=== PATIENT | female | born 1985 | race Caucasian/White ===

== ENCOUNTER 2016-06-08 17:24 | Emergency (ER) | payer MEDICAID ==
[~2016-06-08] VITALS: Ht 149.9 cm; Wt 81.8 kg
[~2016-06-08 17:24] MED LIST: BIRTH CONTROL; BIRTHCONTROL; CELEXA 20MG20 MG/TAB PO; CELEXA10 MG PO; DEPO-PROVER400 MG/ML IM; DESOGEN 0.15 MG1 TAB PO; EC NAPROSYN375 MG PO; ERY-TAB250 MG PO; FLEXERIL 1010 MG/TAB PO; FLEXERIL10 MG PO; FLINTSTONES W/I1 CTB PO; HERBAL LIFE; IBU800 M1 PO; LEVAQUIN 5500 MG/TA1 PO; LORTAB 5/500 501 TAB PO; NAPROSYN PO; NAPROSYN500 MG PO; NASONEX SPRAY NAS; NO HOME MEDICATIONS; NORCO 325 MG-51 TAB PO; NORCO 325 MG-7.1 TAB PO; OMNICEF 300MG300 MG PO; PERCOCET 325 MG1 TA2 PO; PRENATAL1 TA1 PO; SEPTRA DS 8001 TAB PO; TESSALON PERLE200 MG PO; TYLENOL W/COD1 UDTAB PO; ZITHROMAX Z PA250 MG PO; ZITHROMAX500 M2 PO; ZOFRAN 4MG T4 MG/TAB PO
[2016-06-08 17:29] VITALS: TEMP 98
[2016-06-08 18:21] LABS: PH 5 (5-8); URINE APPEARANCE Hazy; URINE BACTERIA None Seen /hpf; URINE BILIRUBIN Negative (NEGATIVE); URINE BLOOD Negative (NEGATIVE); URINE COLOR Yellow; URINE GLUCOSE Negative (NEGATIVE); URINE KETONE Negative (NEGATIVE); URINE RBC 0-2 /hpf; URINE UROBILINOGEN Negative (NEGATIVE); URINE WBC 0-2 /hpf
[2016-06-08 19:18] LABS: BASO # 0.1 (0.0-0.2); BASO % 0.6 % (0.0-2.0); EOS # 0.2 (0.0-0.7); EOS % 1.9 % (0-4.0); GRAN # 6.6 (1.4-6.5); GRAN % 66.2 % (42.2-75.2); HEMATOCRIT 38.8 % (37.0-47.0); LYMPH # 2.5 (1.2-3.4); LYMPH % 25.4 % (20.0-51.0); MEAN CELL VOLUME 88 fl (80.0-100.0); MEAN CORPUSCULAR HEMOGLOBIN 29 pg (27.0-31.0); MEAN CORPUSCULAR HGB CONC 34 g/dl (33.0-37.0); MEAN PLATELET VOLUME 10.1 fl (7.4-10.4); MONO # 0.5 (0.1-0.6); MONO % 5.2 % (1.7-9.3); PLATELET COUNT 260 K/mm3 (130-400); RED BLOOD COUNT 4.42 M/mm3 (4.10-5.30); REDCELL DISTRIBUTION WIDTH-CV 12.4 % (11.5-14.5)
[2016-06-08 20:54] VITALS: BP 99/47; PULSE 92
[2016-06-08 22:36] LABS: CHLAMYDIA/TRACH by PCR Female Not Detected; NEISSERIA GON by PCR Female Not Detected
== END 2016-06-08 20:56 | disposition home or self-care (01) ==
LOC: COL.ER 17:24
PROVIDERS: Nurse Practitioner
DX: O26.891 Other specified pregnancy related conditions, first trimester (principal); R10.2 Pelvic and perineal pain; N94.89 Other specified conditions associated with female genital organs and menstrual cycle; Z3A.01 Less than 8 weeks gestation of pregnancy

== ENCOUNTER 2016-07-24 08:30 | Emergency (ER) | payer BC, MEDICAID ==
[~2016-07-24] VITALS: Ht 149.9 cm; Wt 93.2 kg
[2016-07-24 08:33] VITALS: TEMP 98.9
[2016-07-24] MEDS ORDERED: CEFTIN 250250 MG/TAB PO (08:36)
[2016-07-24 08:55] LABS: BASO # 0.1 (0.0-0.2); BASO % 0.6 % (0.0-2.0); EOS # 0.1 (0.0-0.7); GRAN # 6.1 (1.4-6.5); GRAN % 74.1 % (42.2-75.2); HEMATOCRIT 38.9 % (37.0-47.0); HEMOGLOBIN 13.3 g/dl (12.5-16.0); LYMPH # 1.4 (1.2-3.4); LYMPH % 16.7 % (20.0-51.0); MEAN CELL VOLUME 87 fl (80.0-100.0); MEAN CORPUSCULAR HEMOGLOBIN 30 pg (27.0-31.0); MEAN CORPUSCULAR HGB CONC 34 g/dl (33.0-37.0); MONO # 0.5 (0.1-0.6); MONO % 6.4 % (1.7-9.3); PLATELET COUNT 238 K/mm3 (130-400); RED BLOOD COUNT 4.46 M/mm3 (4.10-5.30); REDCELL DISTRIBUTION WIDTH-CV 12.6 % (11.5-14.5); WHITE BLOOD COUNT 8.3 K/mm3 (4.8-10.8)
[2016-07-24 09:14] LABS: ADJUSTED CALCIUM 9.5 mg/dL (8.4-10.2); ALBUMIN 3.6 gm/dL (3.5-5.0); BILIRUBIN,TOTAL 0.7 mg/dL (0.0-1.0); CALCIUM 9.2 mg/dL (8.4-10.2); CREATININE, serum 0.45 mg/dL (0.52-1.25); POTASSIUM 3.7 mmol/L (3.4-5.0); TOTAL PROTEIN 7.4 gm/dL (6.4-8.2)
[2016-07-24 10:25] VITALS: BP 109/50; PULSE 105
== END 2016-07-24 10:25 | disposition home or self-care (01) ==
LOC: COL.ER 08:30
PROVIDERS: Physician Assistant
DX: O99.611 Diseases of the digestive system complicating pregnancy, first trimester (principal); K12.2 Cellulitis and abscess of mouth; O99.331 Smoking (tobacco) complicating pregnancy, first trimester; F17.210 Nicotine dependence, cigarettes, uncomplicated; Z3A.12 12 weeks gestation of pregnancy; Z88.0 Allergy status to penicillin; Z88.3 Allergy status to other anti-infective agents
CPT/HCPCS: J1200; J2930; J7030

== ENCOUNTER → 2016-08-31 | Outpatient (CLI) | payer BC, MEDICAID ==
[~2016-08-31] MED LIST changes: +CEFTIN 250250 MG/TAB PO; +CLEOCIN HCL300 MG PO; +FERROUS SU325 MG/TAB PO; +MACROBID 1100 MG/CAP PO; +PRENATAL PO; +SENOKOT S 50 MG1 TAB PO
== END ==
LOC: ZCOL.LAB 17:20
DX: H92.13 Otorrhea, bilateral (principal)

== ENCOUNTER 2016-10-29 07:33 | Emergency (ER) | payer BC, MEDICAID ==
[~2016-10-29] VITALS: Ht 149.9 cm; Wt 96.4 kg
[~2016-10-29 07:33] MED LIST changes: -CLEOCIN HCL300 MG PO; -FERROUS SU325 MG/TAB PO; -MACROBID 1100 MG/CAP PO; -PRENATAL PO; -SENOKOT S 50 MG1 TAB PO
[2016-10-29 07:37] VITALS: TEMP 97.9
[2016-10-29] MEDS ORDERED: PRENATAL PO (07:40)
[2016-10-29 08:07] LABS: MEAN CELL VOLUME 83 fl (80.0-100.0); MEAN CORPUSCULAR HGB CONC 33 g/dl (33.0-37.0); MEAN PLATELET VOLUME 10.2 fl (7.4-10.4); PLATELET COUNT 222 K/mm3 (130-400); RED BLOOD COUNT 3.96 M/mm3 (4.10-5.30); REDCELL DISTRIBUTION WIDTH-CV 13.8 % (11.5-14.5); WHITE BLOOD COUNT 7.4 K/mm3 (4.8-10.8)
[2016-10-29 08:16] LABS: ADJUSTED CALCIUM 9.1 mg/dL (8.4-10.2); ALBUMIN 3.1 gm/dL (3.5-5.0); BILIRUBIN,TOTAL 0.6 mg/dL (0.0-1.0); CALCIUM 8.4 mg/dL (8.4-10.2); CREATININE, serum 0.41 mg/dL (0.52-1.25); POTASSIUM 3.8 mmol/L (3.4-5.0); TOTAL PROTEIN 6.1 gm/dL (6.4-8.2)
[2016-10-29 08:18] LABS: ADD PATHOLOGY DIFF REVIEW NO; HEMATOCRIT 32.9 % (37.0-47.0); HEMOGLOBIN 10.7 g/dl (12.5-16.0); MEAN CORPUSCULAR HEMOGLOBIN 27 pg (27.0-31.0)
[2016-10-29 09:27] LABS: BAND 27 % (0-10); EOSINOPHIL 3 % (0-4); METAMYELOCYTE 2 % (0-0); NEUTROPHILS 52 % (42.0-75.2); TOTAL CELLS COUNTED 100
[2016-10-29 09:28] LABS: PLATELET ESTIMATE NORMAL (NORMAL)
[2016-10-29 09:54] LABS: PH 6 (5-8); URINE APPEARANCE Hazy; URINE BACTERIA Many /hpf; URINE BILIRUBIN Negative (NEGATIVE); URINE BLOOD Negative (NEGATIVE); URINE COLOR Yellow; URINE GLUCOSE Negative (NEGATIVE); URINE KETONE 1+ (NEGATIVE); URINE UROBILINOGEN Negative (NEGATIVE)
[2016-10-29] MEDS ORDERED: MACROBID 1100 MG/CAP PO (10:40)
[2016-10-29 10:54] VITALS: BP 114/69; PULSE 79
== END 2016-10-29 10:55 | disposition home or self-care (01) ==
LOC: COL.ER 07:33
PROVIDERS: Nurse Practitioner
DX: O99.012 Anemia complicating pregnancy, second trimester (principal); D64.9 Anemia, unspecified; O99.89 Other specified diseases and conditions complicating pregnancy, childbirth and the puerperium; M79.89 Other specified soft tissue disorders; R82.71 Bacteriuria; O99.342 Other mental disorders complicating pregnancy, second trimester; F32.9 Major depressive disorder, single episode, unspecified; Z3A.27 27 weeks gestation of pregnancy
CPT/HCPCS: J7030

== ENCOUNTER 2017-01-18 13:40 | Outpatient (CLI) | payer BC, MEDICAID ==
[~2017-01-18] VITALS: Ht 149.9 cm; Wt 102.7 kg
[~2017-01-18 13:40] MED LIST changes: +MACROBID 1100 MG/CAP PO; +PRENATAL PO
[2017-01-18 14:09] VITALS: BP 106/60; PULSE 104; TEMP 98.9
[2017-01-18 14:20] VITALS: BP 110/75; PULSE 96
== END 2017-01-18 14:20 | disposition home or self-care (01) ==
LOC: LDRO 13:40
DX: Z34.83 Encounter for supervision of other normal pregnancy, third trimester (principal); Z3A.37 37 weeks gestation of pregnancy

== ENCOUNTER 2017-01-28 09:40 | Inpatient (IN) | payer BC, MEDICAID ==
[~2017-01-28] VITALS: Ht 149.9 cm; Wt 104.5 kg
[2017-01-28] VITALS (17 sets, daily range): BP systolic 96–127; BP diastolic 46–85; PULSE 68–101; TEMP 97–98
--- NOTE | 2017-01-28 09:51 | NUR ---
PT TO OB FOR R/CS, EFM PLACED AND VS TAKEN.
[2017-01-28 10:04] LABS: MEAN CELL VOLUME 77 fl (80.0-100.0); MEAN CORPUSCULAR HGB CONC 32 g/dl (33.0-37.0); MEAN PLATELET VOLUME 11.6 fl (7.4-10.4); PLATELET COUNT 199 K/mm3 (130-400); RED BLOOD COUNT 4.25 M/mm3 (4.10-5.30); REDCELL DISTRIBUTION WIDTH-CV 16.4 % (11.5-14.5)
[2017-01-28 10:05] LABS: HEMATOCRIT 32.8 % (37.0-47.0); HEMOGLOBIN 10.4 g/dl (12.5-16.0); MEAN CORPUSCULAR HEMOGLOBIN 24 pg (27.0-31.0)
--- NOTE | 2017-01-28 10:28 | NUR ---
PT NOTED TO HAVE WOUNDS ALL AROUND PERINEUM AND ABDOMEN X5, ONE ON MONS IS DRAINING AND DR INGRAM ORDERED TO CULTURE THIS BEFOER C/S. CULTURE WAS DONE AND ESNT TO LAB
[2017-01-28 10:30] LABS: BAND 25 % (0-10); EOSINOPHIL 2 % (0-4); LYMPHOCYTE 14 % (20.0-51.0); NEUTROPHILS 53 % (42.0-75.2)
--- NOTE | 2017-01-28 12:56 | NUR ---
TO PACU PER STAFF, PT AWAKE AND STABLE, RATE PAIN 5 AT INCISION SITE, STATES ITS IS BURNING
--- NOTE | 2017-01-28 13:29 | NUR ---
TO PP ROOM, FAMILY AT BEDSIDE, PT AWAKE AND STABLE
--- NOTE | 2017-01-28 13:55 | NUR ---
PT DOES HAVE SOME NAUSEA, NO EMESIS, STATES HER PAIN IS WORSE
--- NOTE | 2017-01-28 14:52 | NUR ---
PT ASLEEP AND SNORING FAMILY IN ROOM CARING FOR BABY
--- NOTE | 2017-01-28 15:19 | NUR ---
DREW CARE DONE FOR PT IN BED, PT IS VERY INTOLERANT TO MOVMENT, ABDOMINAL BINDER PLACED.
[2017-01-29] VITALS: BP 108/50; PULSE 80; TEMP 98
[2017-01-29 05:43] LABS: HEMATOCRIT 28.8 % (37.0-47.0); HEMOGLOBIN 8.9 g/dl (12.5-16.0)
[2017-01-29 07:30] VITALS: BP 129/79; PULSE 94; TEMP 98.2
[2017-01-29 16:00] VITALS: BP 107/64; PULSE 111; TEMP 98.3
[2017-01-29 21:30] VITALS: BP 109/55; PULSE 96; TEMP 97.6
[2017-01-30 06:50] VITALS: BP 116/67; PULSE 101; TEMP 97.8
[2017-01-30] MEDS ORDERED: SENOKOT S 50 MG1 TAB PO (09:13)
[2017-01-30] MEDS ORDERED: IBU800 M1 PO (09:13)
[2017-01-30] MEDS ORDERED: CLEOCIN HCL300 MG PO (09:13)
[2017-01-30] MEDS ORDERED: PERCOCET 325 MG1 TA2 PO (09:13)
[2017-01-30] MEDS ORDERED: FERROUS SU325 MG/TAB PO (09:13)
== END 2017-01-30 15:20 | disposition home or self-care (01) | DRG 765 ==
LOC: OB 09:40
PROVIDERS: ADMIT Obstetrics & Gynecology
PROC: 10D00Z1 Extraction of Products of Conception, Low, Open Approach (ICD-10-PCS; principal; 2017-01-28)
PROC: 0UB70ZZ Excision of Bilateral Fallopian Tubes, Open Approach (ICD-10-PCS; 2017-01-28)
DX: O34.211 Maternal care for low transverse scar from previous cesarean delivery (principal); O75.3 Other infection during labor; N76.4 Abscess of vulva; O99.72 Diseases of the skin and subcutaneous tissue complicating childbirth; N85.8 Other specified noninflammatory disorders of uterus; Z3A.39 39 weeks gestation of pregnancy; Z37.0 Single live birth; Z40.09 Encounter for prophylactic removal of other organ; O99.02 Anemia complicating childbirth; D64.9 Anemia, unspecified
CPT/HCPCS: J0690; J1885; J2210; J2250; J2270; J2370; J2405; J2590; J3010; J7120

== ENCOUNTER 2017-11-24 17:40 | Emergency (ER) | payer BC ==
[~2017-11-24] VITALS: Ht 149.9 cm; Wt 98.6 kg
[~2017-11-24 17:40] MED LIST changes: +CLEOCIN HCL300 MG PO; +FERROUS SU325 MG/TAB PO; +SENOKOT S 50 MG1 TAB PO
[2017-11-24 17:42] VITALS: BP 138/76; TEMP 99
[2017-11-24 18:18] LABS: BASO # 0.1 (0.0-0.2); BASO % 0.7 % (0.0-2.0); EOS # 0.2 (0.0-0.7); EOS % 1.5 % (0-4.0); GRAN # 7.1 (1.4-6.5); GRAN % 69.8 % (42.2-75.2); HEMATOCRIT 39.5 % (37.0-47.0); HEMOGLOBIN 12.6 g/dl (12.5-16.0); LYMPH # 2.3 (1.2-3.4); LYMPH % 23.1 % (20.0-51.0); MEAN CELL VOLUME 79 fl (80.0-100.0); MEAN CORPUSCULAR HEMOGLOBIN 25 pg (27.0-31.0); MEAN CORPUSCULAR HGB CONC 32 g/dl (33.0-37.0); MEAN PLATELET VOLUME 10.1 fl (7.4-10.4); MONO # 0.5 (0.1-0.6); MONO % 4.4 % (1.7-9.3); PLATELET COUNT 328 K/mm3 (130-400); REDCELL DISTRIBUTION WIDTH-CV 15.1 % (11.5-14.5)
[2017-11-24 18:28] LABS: ACETAMINOPHEN < 10 ug/mL (10-30); ALANINE AMINOTRANSFERASE 39 U/L (9-52); ALCOHOL(ethanol),MEDICAL < 10 mg/dL; ALKALINE PHOSPHATASE 115 U/L (50-136); ANION GAP 13 mmol/L (7-16); AST,SGOT 18 U/L (15-37); BILIRUBIN,TOTAL 0.5 mg/dL (0.0-1.0); BLOOD UREA NITROGEN 20 mg/dL (7-17); CALCIUM 9.1 mg/dL (8.4-10.2); CARBON DIOXIDE 24 mmol/L (22-30); CHLORIDE 104 mmol/L (98-107); CREATININE, serum 0.78 mg/dL (0.52-1.25); GLUCOSE 117 mg/dL (74-106); POTASSIUM 3.5 mmol/L (3.4-5.0); SALICYLATE < 1.0 mg/dL; SODIUM 140 mmol/L (137-145)
[2017-11-24 18:55] LABS: TRICYCLIC ANTIDEPRESS URINE NEGATIVE
[2017-11-24] MEDS ORDERED: KLONOPIN 0.5MG0.5 MG PO (20:55)
[2017-11-24 21:15] VITALS: PULSE 108
== END 2017-11-24 21:15 | disposition home or self-care (01) ==
LOC: COL.ER 17:40
PROVIDERS: Emergency Medicine
DX: R45.851 Suicidal ideations (principal); F32.9 Major depressive disorder, single episode, unspecified; F17.210 Nicotine dependence, cigarettes, uncomplicated; Z98.890 Other specified postprocedural states

== ENCOUNTER 2018-11-18 09:21 | Emergency (ER) | payer BC, OTHER ==
[~2018-11-18] VITALS: Ht 149.9 cm; Wt 96.4 kg
[~2018-11-18 09:21] MED LIST changes: +KLONOPIN 0.5MG0.5 MG PO
[2018-11-18 09:30] VITALS: BP 121/86; TEMP 97.5
[2018-11-18 10:01] LABS: COLLECTION METHOD CLEAN CATCH
[2018-11-18 10:05] LABS: BASO # 0.1 (0.0-0.2); BASO % 0.5 % (0.0-2.0); EOS # 0.2 (0.0-0.7); EOS % 2.1 % (0-4.0); GRAN # 6.4 (1.4-6.5); GRAN % 65.9 % (42.2-75.2); HEMATOCRIT 42.4 % (37.0-47.0); HEMOGLOBIN 13.4 g/dl (12.5-16.0); LYMPH # 2.6 (1.2-3.4); LYMPH % 26.5 % (20.0-51.0); MEAN CELL VOLUME 85 fl (80.0-100.0); MEAN CORPUSCULAR HEMOGLOBIN 27 pg (27.0-31.0); MEAN CORPUSCULAR HGB CONC 32 g/dl (33.0-37.0); MEAN PLATELET VOLUME 10.2 fl (7.4-10.4); MONO # 0.4 (0.1-0.6); MONO % 4.3 % (1.7-9.3); PLATELET COUNT 287 K/mm3 (130-400); RED BLOOD COUNT 4.97 M/mm3 (4.10-5.30); REDCELL DISTRIBUTION WIDTH-CV 13.7 % (11.5-14.5)
[2018-11-18 10:08] LABS: PH 6 (5-8); URINE APPEARANCE Clear; URINE BACTERIA None Seen /hpf; URINE BILIRUBIN Negative (NEGATIVE); URINE BLOOD Negative (NEGATIVE); URINE COLOR Yellow; URINE GLUCOSE Negative (NEGATIVE); URINE KETONE Negative (NEGATIVE); URINE LEUKOCYTE ESTERASE Negative (NEGATIVE); URINE NITRATE Negative (NEGATIVE); URINE PROTEIN(semi-quant) Negative (NEGATIVE); URINE RBC 0-2 /hpf; URINE UROBILINOGEN Negative (NEGATIVE)
[2018-11-18 10:14] LABS: ALBUMIN 3.9 gm/dL (3.5-5.0); BILIRUBIN,TOTAL 0.6 mg/dL (0.0-1.0); CALCIUM 8.5 mg/dL (8.4-10.2); CREATININE, serum 0.49 (0.52-1.25); POTASSIUM 4.4 mmol/L (3.4-5.0); TOTAL PROTEIN 7.6 gm/dL (6.4-8.2)
[2018-11-18] MEDS ORDERED: NORCO 325 MG-51 TAB PO (10:45)
[2018-11-18 11:33] VITALS: PULSE 81
== END 2018-11-18 11:33 | disposition home or self-care (01) ==
LOC: COL.ER 09:21
PROVIDERS: Emergency Medicine
DX: N28.89 Other specified disorders of kidney and ureter (principal); Z98.890 Other specified postprocedural states
CPT/HCPCS: J1170; J1885; J7030; Q9967

== ENCOUNTER → 2018-12-12 | Outpatient (CLI) | payer BC | LOC: COL.RAD 06:48 | DX: K80.20 Calculus of gallbladder without cholecystitis without obstruction (principal) | CPT/HCPCS: A9537; J2270 ==

== ENCOUNTER 2020-02-04 19:06 | Emergency (ER) | payer BC ==
[~2020-02-04] VITALS: Ht 149.9 cm; Wt 103.2 kg
[2020-02-04 19:28] VITALS: TEMP 98.9
[2020-02-04 20:45] VITALS: BP 128/91; PULSE 88
== END 2020-02-04 20:46 | disposition home or self-care (01) ==
LOC: COL.ER 19:06
DX: U07.1 COVID-19 (principal)
CPT/HCPCS: J8540

== ENCOUNTER 2020-02-08 14:25 | Emergency (ER) | payer BC ==
[~2020-02-08] VITALS: Ht 149.9 cm; Wt 102.3 kg
[2020-02-08 14:34] VITALS: TEMP 97.9
[2020-02-08 15:24] LABS: BASO % 0.5 % (0.0-2.0); EOS # 0.2 (0.0-0.7); EOS % 2.4 % (0-4.0); GRAN # 3.6 (1.4-6.5); GRAN % 57.6 % (42.2-75.2); HEMATOCRIT 41.4 % (37.0-47.0); HEMOGLOBIN 13.4 g/dl (12.5-16.0); LYMPH # 2.1 (1.2-3.4); LYMPH % 33.5 % (20.0-51.0); MEAN CELL VOLUME 83 fl (80.0-100.0); MEAN CORPUSCULAR HEMOGLOBIN 27 pg (27.0-31.0); MEAN CORPUSCULAR HGB CONC 32 g/dl (33.0-37.0); MEAN PLATELET VOLUME 10.1 fl (7.4-10.4); MONO # 0.3 (0.1-0.6); MONO % 5.4 % (1.7-9.3); PLATELET COUNT 271 K/mm3 (130-400); RED BLOOD COUNT 5.02 M/mm3 (4.10-5.30); REDCELL DISTRIBUTION WIDTH-CV 12.9 % (11.5-14.5)
[2020-02-08 15:40] LABS: ALANINE AMINOTRANSFERASE 36 U/L (4-34); ALBUMIN 3.9 gm/dL (3.5-5.0); ALKALINE PHOSPHATASE 98 U/L (50-136); ANION GAP 7 mmol/L (7-16); AST,SGOT 24 U/L (15-37); BILIRUBIN,TOTAL 0.4 mg/dL (0.0-1.0); BLOOD UREA NITROGEN 17 mg/dL (7-17); C-REACTIVE PROTEIN 0.7 mg/dL (0.0-0.9); CARBON DIOXIDE 28 mmol/L (22-30); CHLORIDE 104 mmol/L (98-107); CREATININE, serum 0.51 (0.52-1.25); GLUCOSE 89 mg/dL (74-106); POTASSIUM 3.7 mmol/L (3.4-5.0); SODIUM 138 mmol/L (137-145); TOTAL PROTEIN 7.2 gm/dL (6.4-8.2)
[2020-02-08 15:57] LABS: TROPONIN-I < 0.012 ng/mL (0.000-0.035)
[2020-02-08 17:43] VITALS: BP 124/88; PULSE 84
== END 2020-02-08 17:50 | disposition home or self-care (01) ==
LOC: COL.ER 14:25
PROVIDERS: Emergency Medicine
DX: R06.02 Shortness of breath (principal); U07.1 COVID-19; Z32.02 Encounter for pregnancy test, result negative; Z87.891 Personal history of nicotine dependence
CPT/HCPCS: J7030

== ENCOUNTER 2020-02-25 17:13 | Emergency (ER) | payer BC ==
[~2020-02-25] VITALS: Ht 149.9 cm; Wt 101.4 kg
[2020-02-25 17:22] VITALS: TEMP 98.9
[2020-02-25 18:16] LABS: BASO # 0.1 (0.0-0.2); BASO % 0.5 % (0.0-2.0); EOS # 0.2 (0.0-0.7); EOS % 2.4 % (0-4.0); GRAN # 6.4 (1.4-6.5); HEMATOCRIT 40.2 % (37.0-47.0); HEMOGLOBIN 13.3 g/dl (12.5-16.0); LYMPH # 2.5 (1.2-3.4); LYMPH % 25.1 % (20.0-51.0); MEAN CELL VOLUME 83 fl (80.0-100.0); MEAN CORPUSCULAR HEMOGLOBIN 28 pg (27.0-31.0); MEAN CORPUSCULAR HGB CONC 33 g/dl (33.0-37.0); MEAN PLATELET VOLUME 10.6 fl (7.4-10.4); MONO # 0.6 (0.1-0.6); MONO % 6.5 % (1.7-9.3); PLATELET COUNT 296 K/mm3 (130-400); RED BLOOD COUNT 4.82 M/mm3 (4.10-5.30); REDCELL DISTRIBUTION WIDTH-CV 13.5 % (11.5-14.5)
[2020-02-25 18:21] LABS: COLLECTION METHOD CLEAN CATCH
[2020-02-25 18:24] LABS: ALANINE AMINOTRANSFERASE 31 U/L (4-34); ALBUMIN 4.2 gm/dL (3.5-5.0); ALKALINE PHOSPHATASE 102 U/L (50-136); ANION GAP 10 mmol/L (7-16); AST,SGOT 20 U/L (15-37); BILIRUBIN,TOTAL 0.5 mg/dL (0.0-1.0); BLOOD UREA NITROGEN 19 mg/dL (7-17); CALCIUM 8.7 mg/dL (8.4-10.2); CARBON DIOXIDE 25 mmol/L (22-30); CHLORIDE 103 mmol/L (98-107); CREATININE, serum 0.72 (0.52-1.25); GLUCOSE 95 mg/dL (74-106); POTASSIUM 3.7 mmol/L (3.4-5.0); SODIUM 137 mmol/L (137-145); TOTAL PROTEIN 7.7 gm/dL (6.4-8.2)
[2020-02-25 18:28] LABS: MUCOUS Present /lpf; PH 5 (5-8); SQUAMOUS EPITHELIAL 20-50 /hpf; URINE APPEARANCE Cloudy; URINE BACTERIA Rare /hpf; URINE BILIRUBIN Negative (NEGATIVE); URINE BLOOD Negative (NEGATIVE); URINE COLOR Yellow; URINE GLUCOSE Negative (NEGATIVE); URINE KETONE Negative (NEGATIVE); URINE LEUKOCYTE ESTERASE Negative (NEGATIVE); URINE NITRATE Negative (NEGATIVE); URINE PROTEIN(semi-quant) 1+ (NEGATIVE); URINE RBC 0-2 /hpf
[2020-02-25 18:42] LABS: TROPONIN-I < 0.012 ng/mL (0.000-0.035)
[2020-02-25] MEDS ORDERED: LEVAQUIN 750MG750 M1 PO (20:14)
[2020-02-25 20:30] VITALS: BP 112/87; PULSE 90
== END 2020-02-25 20:30 | disposition home or self-care (01) ==
LOC: COL.ER 17:13
PROVIDERS: Nurse Practitioner Primary Care
DX: J18.1 Lobar pneumonia, unspecified organism (principal); F32.9 Major depressive disorder, single episode, unspecified; Z86.19 Personal history of other infectious and parasitic diseases
CPT/HCPCS: Q9967

== ENCOUNTER 2020-12-18 14:04 | Emergency (ER) | payer BC ==
[~2020-12-18] VITALS: Ht 149.9 cm; Wt 102.3 kg
[~2020-12-18 14:04] MED LIST changes: +LEVAQUIN 750MG750 M1 PO
[2020-12-18 14:57] VITALS: TEMP 97.9
[2020-12-18] MEDS ORDERED: FLEXERIL 1010 MG/TAB PO (15:43)
[2020-12-18] MEDS ORDERED: NAPROSYN500 MG PO (15:43)
[2020-12-18 16:00] VITALS: BP 128/87; PULSE 88
== END 2020-12-18 16:15 | disposition home or self-care (01) ==
LOC: COL.ER 14:04
DX: S43.402A Unspecified sprain of left shoulder joint, initial encounter (principal); F41.9 Anxiety disorder, unspecified; Z79.899 Other long term (current) drug therapy; Y04.0XXA Assault by unarmed brawl or fight, initial encounter
CPT/HCPCS: J1885

== ENCOUNTER 2021-07-11 08:49 | Emergency (ER) | payer BC ==
[~2021-07-11] VITALS: Ht 149.9 cm; Wt 99.1 kg
[2021-07-11 09:01] VITALS: BP 144/89; TEMP 98
[2021-07-11] MEDS ORDERED: AMOXICILLIN 8751 TAB PO (09:17)
[2021-07-11 10:05] VITALS: PULSE 85
== END 2021-07-11 10:05 | disposition home or self-care (01) ==
LOC: COL.ER 08:49
DX: L03.213 Periorbital cellulitis (principal); F41.9 Anxiety disorder, unspecified; Z88.1 Allergy status to other antibiotic agents; Z79.899 Other long term (current) drug therapy

== ENCOUNTER 2023-02-10 21:29 | Emergency (ER) | payer OTHER ==
[~2023-02-10] VITALS: Ht 165.1 cm; Wt 93.2 kg
[~2023-02-10 21:29] MED LIST changes: +AMOXICILLIN 8751 TAB PO
[2023-02-10 21:34] VITALS: TEMP 97.4
[2023-02-10 22:14] VITALS: BP 127/86; PULSE 83
== END 2023-02-10 22:14 | disposition home or self-care (01) ==
LOC: COL.ER 21:29
DX: T78.3XXA Angioneurotic edema, initial encounter (principal); Z28.310 Unvaccinated for COVID-19
CPT/HCPCS: J1200